=== PATIENT | female | born 1960 | race Caucasian/White ===

== ENCOUNTER 2019-08-06 16:32 | Emergency (ER) | payer BC ==
[2019-08-06] MEDS ORDERED: Sodium Chloride 0.9% 10 ML Syringe FLUSH PRN (16:50)
--- NOTE | 2019-08-06 16:50 | EDM.PDOC ---
ED HPI GENERAL MEDICAL PROBLEM - General Chief Complaint: Upper Extremity Injury/Pain Stated Complaint: LT ELBOW INJURY Time Seen by Provider: 08/06/19 16:34 Source of Information: Reports: Patient, Family (son) History Limitations: Reports: No Limitations - History of Present Illness INITIAL COMMENTS - FREE TEXT/NARRATIVE: 59-year-old female presents to the ED for evaluation of acute injury to her left elbow. She reports that she was out in the past year and a horse backed up into her knocking her to the ground. She fell heavily on her left elbow and had immediate pain and deformity and very limited ability to move her elbow. She may have hit her head but she denies any loss of consciousness. She states her eyeglasses did fly off but she was able to find them. She states she believes the wind was knocked out of her for short period of time. At present she has no problems breathing or pain on deep inspiration. She drove herself to the hospital. She has no problems walking. She has some mild left shoulder tip pain around the acromium process and distal clavicle. Pain is at the elbow with lots of numbness and tingling in the distribution of all of her fingers. Onset: Today Onset Date: 08/06/19 Onset Time: 15:25 Duration: Minutes: Location: Reports: Upper Extremity, Left Quality: Reports: Ache (Elbow.), Throbbing Severity: Moderate (710) Improves with: Denies: None, Cold Therapy, Eating, Heat Therapy, Immobilization Worsens with: Reports: Movement (Attempt to move the left elbow causes tremendous pain.) Context: Reports: Trauma (He was knocked down backwards by a horse who backed into her in the past year.). Denies: Activity, Exercise, Lifting, Sick Contact Associated Symptoms: Reports: No Other Symptoms Treatments [employer]: Reports: Other (see below) Left Elbow Pain Score (Numeric/FACES): 8 - Related Data Allergies Allergy/AdvReac Type Severity Reaction Status Date / Time cyclobenzaprine Allergy Severe Jaundice Verified 08/06/19 16:44 tramadol [From Ultram] Allergy Severe Cannot Verified 08/06/19 16:44 Remember Home Meds: Home Meds Hydrocodone/Acetaminophen [Hydrocodon-Acetaminoph 7.5-325] 1 each PO BEDTIME PRN 08/06/19 [History] Meloxicam 7.5 mg PO DAILY 08/06/19 [History] Pregabalin [Lyrica] 75 mg PO BID 08/06/19 [History] Rosuvastatin Calcium 10 mg PO BEDTIME 08/06/19 [History] Verapamil [Calan] 100 mg PO BEDTIME 08/06/19 [History] Zolpidem [Ambien] 12.5 mg PO BEDTIME 08/06/19 [History] tiZANidine [Zanaflex] 4 mg PO DAILY 08/06/19 [History] Past Medical History Cardiovascular History: Reports: Hypertension Musculoskeletal History: Reports: Back Pain, Chronic Psychiatric History: Reports: Other (See Below) (Chronic insomnia) - Past Surgical History Female Surgical History: Reports: Tubal Ligation Social & Family History - Tobacco Use Smoking Status *Q: Never Smoker - Recreational Drug Use Recreational Drug Use: No - Living Situation & Occupation Living situation: Reports: Occupation: Employed Review of Systems - Review of Systems Review Of Systems: See Below Constitutional: Reports: No Symptoms Eyes: Reports: Glasses Ears: Reports: No Symptoms Nose: Reports: No Symptoms Mouth/Throat: Reports: No Symptoms Respiratory: Reports: No Symptoms Cardiovascular: Reports: No Symptoms GI/Abdominal: Reports: No Symptoms Genitourinary: Reports: No Symptoms Musculoskeletal: Reports: Back Pain (Has scoliosis of the thoracic lumbar spine. ) Skin: Reports: No Symptoms Neurological: Reports: No Symptoms Psychiatric: Reports: No Symptoms ED EXAM, GENERAL - Physical Exam Exam: See Below Exam Limited By: No Limitations General Appearance: Alert, WD/WN, Moderate Distress, Other (Good deal of pain. Temperature is 37.1. Pulse is 90 and sinus respiratory to 16 with O2 sats of 100% on room air. BP is elevated 1 6391.) Eye Exam: Bilateral Eye: Normal Inspection, PERRL Throat/Mouth: Normal Inspection, Normal Lips, Normal Oropharynx, Other (No dental or tongue injury) Head: Atraumatic, Normocephalic Neck: Normal Inspection, Supple, Non-Tender, Full Range of Motion. No: Lymphadenopathy (L), Lymphadenopathy (R) Respiratory/Chest: No Respiratory Distress, Lungs Clear, Normal Breath Sounds, No Accessory Muscle Use Cardiovascular: Normal Peripheral Pulses, Regular Rate, Rhythm, No Edema, No Gallop, No Murmur, No Rub Peripheral Pulses: 3+: Carotid (L), Carotid (R), Posterior Tibial (L), Posterior Tibial (R), Dorsalis Pedis (L), Dorsalis Pedis (R) GI/Abdominal: Normal Bowel Sounds, Soft, Non-Tender, No Organomegaly, No Mass, Pelvis Stable Back Exam: Other (Severe scoliosis of the thoracic spine concave to the right with compensatory curve lumbar spine to the left. Has marked tenderness right around the thoracolumbar junction on exam. She states is chronically sore.) Extremities: Other (Right upper extremity is uninjured with full range of motion and able to put her hand on top of her head. The left upper extremity shows good ulnar and radial pulses. Good opposition of the thumb to all fingers. Still adequate sensation in the distribution of the radial nerve. She has deformity at the elbow with widening and no ability to flex or extend at the elbow. No pain over the olecranon process. Some mild tenderness of the acromioclavicular joint left shoulder. No obvious deformity of the proximal or mid humerus) Neurological: Alert, Oriented, CN II-XII Intact, Normal Cognition Psychiatric: Normal Affect, Normal Mood Skin Exam: Warm, Dry, Intact, Normal Color, No Rash ED TRAUMA EXTREMITY PROCEDURES - Splinting Left Upper Extremity Pre-Procedure NV Status: Normal (Upper extremity above elbow) Post-Procedure NV Status: Normal Splint Material: Fiberglass Splint Design: Extensor, Posterior Applied & Form Fitted By: Provider Provider Post-Splint Application NV Check: NV Status Normal Complications: No EKG INTERPRETATION EKG Date: 08/06/19 Time: 16:55 Rhythm: NSR Rate (Beats/Min): 78 (Occasional PACs) Alpine: Normal P-Wave: Enlarged (Consider left atrial hypertrophy.) QRS: Normal ST-T: Other (Nonspecific T wave flattening aVL) QT: Normal EKG Interpretation Comments: Borderline ECG Course - Vital Signs Last Recorded V/S: Last Vital Signs Temp 37.1 C 08/06/19 16:38 Pulse 65 08/06/19 18:31 Resp 16 08/06/19 16:38 BP 163/91 H 08/06/19 16:38 Pulse Ox 100 08/06/19 18:31 - Orders/Labs/Meds Orders: Active Orders 24 hr Category Date Time Status EKG Documentation Completion [RC] STAT Care 08/06/19 16:48 Active Peripheral IV Care [RC] . DIRECTED Care 08/06/19 16:51 Active URINALYSIS W/MICROSCOPIC [UA W/MICROSCOPIC] [URIN] Stat Lab 08/06/19 16:50 Ordered DME for Discharge [COMM] Stat Oth 08/06/19 18:16 Ordered Durable Medical Equipment for Discharge [DME for Oth 08/06/19 18:15 Ordered Discharge] [COMM] Stat Peripheral IV Insertion Adult [OM.PC] Stat Oth 08/06/19 16:50 Ordered Labs: Laboratory Tests 08/06/19 08/06/19 08/06/19 Range/Units 16:55 16:55 16:55 WBC 8.66 (3.98-10.04) K/mm3 RBC 4.48 (3.98-5.22) M/mm3 Hgb 13.6 (11.2-15.7) gm/dl Hct 41.1 (34.1-44.9) % MCV 91.7 (79.4-94.8) fl MCH 30.4 (25.6-32.2) pg MCHC 33.1 (32.2-35.5) g/dl RDW Std Deviation 40.7 (36.4-46.3) fL Plt Count 324 (182-369) K/mm3 MPV 9.3 L (9.4-12.3) fl Neut % (Auto) 64.3 (34.0-71.1) % Lymph % (Auto) 25.2 (19.3-51.7) % [place] % (Auto) 5.7 (4.7-12.5) % Eos % (Auto) 4.2 (0.7-5.8) Baso % (Auto) 0.5 (0.1-1.2) % Neut # (Auto) 5.58 (1.56-6.13) K/mm3 Lymph # (Auto) 2.18 (1.18-3.74) K/mm3 [place] # (Auto) 0.49 H (0.24-0.36) K/mm3 Eos # (Auto) 0.36 (0.04-0.36) K/mm3 Baso # (Auto) 0.04 (0.01-0.08) K/mm3 PT 10.2 (9.7-12.0) SECONDS INR 0.93 APTT 22 (22-31) SECONDS Sodium 142 (136-145) mEq/L Potassium 3.3 L (3.5-5.1) mEq/L Chloride 103 (98-107) mEq/L Carbon Dioxide 27 (21-32) mEq/L Anion Gap 15.3 H (5-15) BUN 14 (7-18) mg/dL Creatinine 0.8 (0.55-1.02) mg/dL Est Cr Clr Drug Dosing 64.26 mL/min Estimated GFR (MDRD) > 60 (>60) mL/min BUN/Creatinine Ratio 17.5 (14-18) Glucose 111 H (74-106) mg/dL Calcium 9.6 (8.5-10.1) mg/dL Magnesium 2.0 (1.8-2.4) mg/dl Total Bilirubin 0.7 (0.2-1.0) mg/dL AST 20 (15-37) U/L ALT 32 (14-59) U/L Alkaline Phosphatase 87 (46-116) U/L Total Protein 8.3 H (6.4-8.2) g/dl Albumin 4.8 (3.4-5.0) g/dl Globulin 3.5 gm/dL Albumin/Globulin Ratio 1.4 (1-2) SARS Virus RNA (PCR) (NEGATIVE) 08/06/19 Range/Units 17:20 WBC (3.98-10.04) K/mm3 RBC (3.98-5.22) M/mm3 Hgb (11.2-15.7) gm/dl Hct (34.1-44.9) % MCV (79.4-94.8) fl MCH (25.6-32.2) pg MCHC (32.2-35.5) g/dl RDW Std Deviation (36.4-46.3) fL Plt Count (182-369) K/mm3 MPV (9.4-12.3) fl Neut % (Auto) (34.0-71.1) % Lymph % (Auto) (19.3-51.7) % [place] % (Auto) (4.7-12.5) % Eos % (Auto) (0.7-5.8) Baso % (Auto) (0.1-1.2) % Neut # (Auto) (1.56-6.13) K/mm3 Lymph # (Auto) (1.18-3.74) K/mm3 [place] # (Auto) (0.24-0.36) K/mm3 Eos # (Auto) (0.04-0.36) K/mm3 Baso # (Auto) (0.01-0.08) K/mm3 PT (9.7-12.0) SECONDS INR APTT (22-31) SECONDS Sodium (136-145) mEq/L Potassium (3.5-5.1) mEq/L Chloride (98-107) mEq/L Carbon Dioxide (21-32) mEq/L Anion Gap (5-15) BUN (7-18) mg/dL Creatinine (0.55-1.02) mg/dL Est Cr Clr Drug Dosing mL/min Estimated GFR (MDRD) (>60) mL/min BUN/Creatinine Ratio (14-18) Glucose (74-106) mg/dL Calcium (8.5-10.1) mg/dL Magnesium (1.8-2.4) mg/dl Total Bilirubin (0.2-1.0) mg/dL AST (15-37) U/L ALT (14-59) U/L Alkaline Phosphatase (46-116) U/L Total Protein (6.4-8.2) g/dl Albumin (3.4-5.0) g/dl Globulin gm/dL Albumin/Globulin Ratio (1-2) SARS Virus RNA (PCR) Negative (NEGATIVE) Meds: Medications Discontinued Medications Generic Name Dose Route Start Last Admin Trade Name Freq PRN Reason Stop Dose Admin Hydromorphone HCl 0.5 mg 08/06/19 17:02 08/06/19 17:06 Dilaudid IVPUSH 08/06/19 17:03 0.5 mg ONETIME ONE Administration Ondansetron HCl 4 mg 08/06/19 17:03 08/06/19 17:06 Zofran IVPUSH 08/06/19 17:04 4 mg ONETIME ONE Administration Sodium Chloride 10 ml 08/06/19 16:50 08/06/19 17:00 Saline Flush FLUSH 10 ml ASDIRECTED PRN Administration Keep Vein Open - Radiology Interpretation Free Text/Narrative:: 59-year-old female attends the ED after being knocked over by a horse causing her to fall backwards with direct blow to her left elbow. She states she probably did hit the back of her head but not hard enough to knock her out. Her glasses went flying but she was able to find them. She denies any cervical neck pain and has full on opposed range of motion of her cervical spine and no outward signs of head trauma. She denies any pain in her ribs or abdomen. Only pain is in her left elbow which is widened and deformed. She has good radial and ulnar pulses. Lower extremities are uninjured. It appears that she will likely have a supracondylar fracture of the humerus. Plan routine lab work preoperatively to be done. ECG as well. Saline lock placed. Patient offered analgesia on more than 1 occasion of which she has refused. X-Rays left humerus and forearm to be done. - Re-Assessments/Exams Free Text/Narrative Re-Assessment/Exam: 08/06/19 17:49 x-rays of the left humerus do not reveal any obvious fractures. Mild narrowing of the acromioclavicular joint compared with mild osteoarthritic change. X-rays of the left elbow reveals that there is an elevated anterior fat pad suggesting there is significant blood within the true elbow joint. There is a small avulsion fracture /calcification off the lateral aspect of the humerus -concern for ligamentous injury. No definitive fracture identified within the proximal ulna or radial head. Plan will be to place her in a posterior Ortho-Glass splint at 90 degrees flexion and follow-up x-rays to be done in 10 to 14 days time. Has hydrocodone tablets at home that she takes at bedtime primarily for her back pain. She will use these as needed for pain relief. 08/06/19 18:11 patient was placed in a posterior Ortho-Glass splint above the elbow to restrict pronation supination at the elbow. She will be placed in a sling. Departure - Departure Time of Disposition: 18:17 Disposition: Home, Self-Care 01 Condition: Fair Clinical Impression: Avulsion fracture of lateral epicondyle of humerus Qualifiers: Encounter type: initial encounter Fracture type: closed Fracture alignment: displaced Laterality: left Qualified Code(s): S42.432A - Displaced fracture ( avulsion) of lateral epicondyle of left humerus, initial encounter for closed fracture - Discharge Information *PRESCRIPTION DRUG MONITORING PROGRAM REVIEWED*: Not Applicable *COPY OF PRESCRIPTION DRUG MONITORING REPORT IN PATIENT VITA: Not Applicable Instructions: Cast or Splint Care, Adult, [id number] Referrals: Svetlana Novak NP [Primary Care Provider] - Forms: ED Department Discharge Additional Instructions: Evaluation in the emergency room today in regards to injury to the left elbow as a result of a direct fall onto the elbow. The elbow was widened on examination worrisome for a fracture. No other injuries were identified on exam. Trays of the elbow however show that there is a small avulsion fracture off the lateral aspect of the humerus or lateral epicondyles. There is some blood within the joint with distention of the anterior fat pad which sometimes means there is a hairline crack in the distal humerus that cannot be visualized initially. Follow-up x-rays will be required in 10 to 14 days time. In the meantime treatment is immobilization with a Ortho-Glass posterior splint to maintain the arm in 90 degrees flexion until further x-rays and orthopedic consultation are obtained. Sling to be worn most of the time. May i apply ice to the elbow area for 1/2-hour out of every 4 hours today and tomorrow to help reduce swelling and pain. You may use your pain medication from home as needed for pain relief. Aloe up decision will will be made with your son Dr. Roman Bustamante--orthopedic surgeon here in [place]. Sepsis Event Note - Evaluation Sepsis Screening Result: No Definite Risk - Focused Exam Vital Signs: Vital Signs Temp Pulse Resp BP Pulse Ox 08/06/19 18:31 65 100 08/06/19 16:38 37.1 C 90 16 163/91 H 100 Date Exam was Performed: 08/06/19 Time Exam was Performed: 19:12 - My Orders Last 24 Hours: My Active Orders 08/06/19 16:48 EKG Documentation Completion [RC] STAT 08/06/19 16:50 URINALYSIS W/MICROSCOPIC [UA W/MICROSCOPIC] [URIN] Stat Peripheral IV Insertion Adult [OM.PC] Stat 08/06/19 16:51 Peripheral IV Care [RC] . DIRECTED 08/06/19 18:15 Durable Medical Equipment for Discharge [DME for Discharge] [COMM] Stat 08/06/19 18:16 DME for Discharge [COMM] Stat - Assessment/Plan Last 24 Hours: My Active Orders 08/06/19 16:48 EKG Documentation Completion [RC] STAT 08/06/19 16:50 URINALYSIS W/MICROSCOPIC [UA W/MICROSCOPIC] [URIN] Stat Peripheral IV Insertion Adult [OM.PC] Stat 08/06/19 16:51 Peripheral IV Care [RC] . DIRECTED 08/06/19 18:15 Durable Medical Equipment for Discharge [DME for Discharge] [COMM] Stat 08/06/19 18:16 DME for Discharge [COMM] Stat
[2019-08-06] MEDS ORDERED: HYDROmorphone 0.5 MG/0.5 ML Syringe IVPUSH ONE (17:02)
[2019-08-06] MEDS ORDERED: Ondansetron 4 MG/2 ML SDV IVPUSH ONE (17:03)
--- NOTE | 2019-08-06 18:04 | CR ---
Left elbow: 4 views left elbow were obtained. Comparison: No previous elbow study is available. Equivocal joint effusion is noted. Small calcification is seen within the medial soft tissues which appears to be old. No acute fracture, dislocation or other bony abnormality is seen. Soft tissue swelling is noted medially. Impression: 1. Equivocal joint effusion. 2. Small soft tissue calcification believed to be old. 3. Soft tissue swelling is seen medially. No acute bony abnormality is seen. Diagnostic code #2 This report was dictated in MDT
--- NOTE | 2019-08-06 18:04 | CR ---
Left humerus: 2 views left humerus were obtained. Elbow findings as noted on elbow study. Mild joint space narrowing is seen within the acromioclavicular joint. No acute fracture, dislocation or other bony abnormality is appreciated. Impression: 1. Nothing acute is seen on left humerus exam. Diagnostic code #2 This report was dictated in MDT
== END 2019-08-06 18:33 | disposition home or self-care (01) ==
LOC: JD.ED 16:32
DX: S42.432A Displaced fracture (avulsion) of lateral epicondyle of left humerus, initial encounter for closed fracture (principal); M41.85 Other forms of scoliosis, thoracolumbar region; I10 Essential (primary) hypertension; Z88.6 Allergy status to analgesic agent; Z79.899 Other long term (current) drug therapy; Z20.828 Contact with and (suspected) exposure to other viral communicable diseases; W19.XXXA Unspecified fall, initial encounter
CPT/HCPCS: 29105; 36415; 73060; 73080; 80053; 83735; 85025; 85610; 85730; 87635; 93005; 96374; 96375; 99284; J1170; J2405; 93010; U0002

== ENCOUNTER 2020-04-02 11:40 | Day surgery (SDC) | payer BC ==
[2020-04-02] MEDS ORDERED: Metoclopramide 10 MG/2 ML SDV IVPUSH ONE (12:17)
[2020-04-02] MEDS ORDERED: HYDROmorphone 0.5 MG/0.5 ML Syringe IVPUSH ONE ×2 (12:17→14:27)
--- NOTE | 2020-04-02 12:23 | EDM.PDOC ---
ED HPI GENERAL MEDICAL PROBLEM - General Chief Complaint: Abdominal Pain Stated Complaint: R SIDE PAIN Time Seen by Provider: 04/02/20 12:16 Source of Information: Reports: Patient History Limitations: Reports: No Limitations - History of Present Illness INITIAL COMMENTS - FREE TEXT/NARRATIVE: 60-year-old female attends the ED due to severe right lower quadrant abdominal pain that started abruptly last evening or early this morning. Patient had acute onset of severe right lower quadrant abdominal pain followed by nausea vomiting. She cannot comment that there was any blood in her emesis. No associated fever . Associated chills and diaphoresis due to the severity of the pain last evening. She reports she could not walk fully erect last evening somewhat better today. Loss of appetite and did not eat anything today. Every bump in the road hurt on the way to the hospital from [place]. Patient reports that she has been having right lower quadrant abdominal pain for the better part of a month which is somewhat confusing. No history of renal colic. She did eat some fatty chicken last evening for supper. Onset: Sudden, Unknown/Unsure (Is not exactly sure when her pain came on but it was after she had gone to bed and she believes it was around midnight.) Onset Date: 04/02/20 Duration: Hour(s):, Getting Worse (Right lower quadrant abdominal pain gradually worsening over the last 12 hours.) Location: Reports: Abdomen (Right lower quadrant abdominal pain with no radiation into her back.) Quality: Reports: Ache (Pain is described as a constant deep aching pain. Is made worse by coughing sneezing laughing or walking.), Other Severity: Moderate (Nausea and vomiting currently pain is 6 out of 10.) Improves with: Reports: Rest Worsens with: Reports: Other (Pain is worse with coughing, sneezing, laughing, riding in the motor vehicle), Movement Context: Denies: Activity, Exercise, Lifting, Sick Contact Associated Symptoms: Reports: Loss of Appetite, Nausea/Vomiting, Weakness (She estimates she vomited about 6 times during the night.). Denies: Confusion, Chest Pain, Cough, cough w sputum Treatments SENIOR MEDICAL DIRECTOR: Reports: Other (see below) (None. Patient has not eaten since suppertime last night.) Right Abdominal Pain Score (Numeric/FACES): 8 - Related Data Allergies Allergy/AdvReac Type Severity Reaction Status Date / Time tramadol [From Ultram] Allergy Unknown Cannot Verified 04/02/20 14:22 Remember cyclobenzaprine AdvReac Intermediate Jaundice Verified 04/02/20 14:22 Home Meds: Home Meds Hydrocodone/Acetaminophen [Hydrocodon-Acetaminoph 7.5-325] 1 each PO BEDTIME PRN 08/06/19 [History] Meloxicam 7.5 mg PO DAILY 08/06/19 [History] Pregabalin [Lyrica] 75 mg PO DAILY 08/06/19 [History] Rosuvastatin Calcium 10 mg PO BEDTIME 08/06/19 [History] Verapamil [Calan] 100 mg PO BEDTIME 08/06/19 [History] Zolpidem [Ambien] 12.5 mg PO BEDTIME 08/06/19 [History] tiZANidine [Zanaflex] 4 mg PO DAILY 08/06/19 [History] Past Medical History HEENT History: Reports: Cataract, Impaired Vision Cardiovascular History: Reports: High Cholesterol, Hypertension Respiratory History: Reports: None Gastrointestinal History: Reports: GERD Genitourinary History: Reports: None CHANNELER INSOLE History: Reports: Musculoskeletal History: Reports: Back Pain, Chronic Neurological History: Reports: Concussion Psychiatric History: Reports: None Endocrine/Metabolic History: Reports: None Hematologic History: Reports: None Immunologic History: Reports: None Oncologic (Cancer) History: Reports: None Dermatologic History: Reports: None - Infectious Disease History Infectious Disease History: Reports: Chicken Pox, Shingles - Past Surgical History Head Surgeries/Procedures: Reports: None HEENT Surgical History: Reports: Oral Surgery GI Surgical History: Reports: None Female Surgical History: Reports: Tubal Ligation Social & Family History - Family History Cardiac: Reports: [place] Respiratory: Reports: Sleep Apnea - Tobacco Use Tobacco Use Status *Q: Never Tobacco User - Caffeine Use Caffeine Use: Reports: Coffee - Recreational Drug Use Recreational Drug Use: No - Living Situation & Occupation Living situation: Reports: Occupation: Employed ED ROS GENERAL - Review of Systems Review Of Systems: See Below Constitutional: Reports: Chills (When pain came on early this morning.), Fati andie, Decreased Appetite (Has no appetite to eat anything.). Denies: Fever HEENT: Reports: Glasses Respiratory: Reports: Shortness of Breath (Ejective dyspnea is taking a deep breath) Cardiovascular: Denies: Chest Pain, Blood Pressure Problem, Claudication, Dyspnea on Exertion, Edema, Lightheadedness, Orthopnea, Palpitations Endocrine: Reports: No Symptoms GI/Abdominal: Reports: Abdominal Pain, Decreased Appetite (History of present illness.), Nausea, Vomiting. Denies: Distension, Flatus, Hematemesis, Hematochezia : Reports: No Symptoms Musculoskeletal: Reports: No Symptoms Skin: Reports: No Symptoms Neurological: Reports: No Symptoms Psychiatric: Reports: No Symptoms Hematologic/Lymphatic: Reports: No Symptoms Immunologic: Reports: No Symptoms ED EXAM, GI/ABD - Physical Exam Exam: See Below Exam Limited By: No Limitations General Appearance: Alert, WD/WN, No Apparent Distress, Other (Temperature is 36.3 although she feels a little warm to palpation. Heart rate was 97 and sinus respiratory is 18 with O2 sats of 97% room air BP 118/70.) Eyes: Bilateral: Normal Appearance (No scleral icterus or blepharal pallor.) Throat/Mouth: Normal Teeth, Normal Oropharynx, Other (Tongue is mildly dry.) Head: Atraumatic, Normocephalic Neck: Normal Inspection, Supple, Non-Tender, Full Range of Motion. No: Carotid Bruit, Lymphadenopathy (L), Lymphadenopathy (R) Respiratory/Chest: No Respiratory Distress, Lungs Clear, Normal Breath Sounds, No Accessory Muscle Use, Splinting (Splinting on the right side as it makes the abdominal pain worse to take a full deep breath.) Cardiovascular: Normal Peripheral Pulses, Regular Rate, Rhythm, No Edema, No Gallop, No Murmur, No Rub GI/Abdominal Exam: Distended (Very minimally distended and tympanic to percussion left lower quadrant epigastrium and periumbilical.), Guarding, Rebound, Tender (Has severe tenderness even to light percussion well localized to the right lower quadrant over McBurney's point. Examination reveals guarding and severe rebound tenderness indicative of peritonitis. Positive Rovsing sign.), Abnormal Bowel Sounds (Bowel sounds are a little less frequent than normal.) Back Exam: Normal Inspection, Full Range of Motion. No: CVA Tenderness (L), CVA Tenderness (R) Extremities: Normal Inspection, Normal Range of Motion, Non-Tender, No Pedal Edema Neurological: Alert, Oriented, CN II-XII Intact, Normal Cognition Psychiatric: Normal Affect, Normal Mood Skin Exam: Warm, Dry, Intact, Normal Color, No Rash #1 Interpretation EKG Date: 04/02/20 Time: 12:39 Rhythm: NSR Rate (Beats/Min): 80 [place]: Normal P-Wave: Present QRS: Other (Initial poor R wave progression likely due to lead placement.) ST-T: Other (T wave flattening in 1 and aVL nonspecific finding) QT: Prolonged EKG Interpretation Comments: Borderline ECG. Course - Vital Signs Last Recorded V/S: Last Vital Signs Temp 36.3 C 04/02/20 11:54 Pulse 84 04/02/20 13:43 Resp 16 04/02/20 13:43 BP 118/70 04/02/20 11:54 Pulse Ox 100 04/02/20 13:43 - Orders/Labs/Meds Orders: Active Orders 24 hr Category Date Time Status Patient Status [ADT] Routine ADT 04/02/20 14:23 Active EKG Documentation Completion [RC] STAT Care 04/02/20 12:31 Active Abdomen Pelvis w Cont [CT] Stat Exams 04/02/20 12:23 Taken Chest 1V Frontal [CR] Stat Exams 04/02/20 12:22 Taken Dextrose 5%-0.9% NaCl [Dextrose 5%-Normal Saline] 1,000 Med 04/02/20 12:30 Active ml IV ASDIRECTED Scopolamine [Transderm-Scop] Med 04/02/20 13:59 Active 1.5 mg TOP ONETIME PRN Sodium Chloride 0.9% [Saline Flush] Med 04/02/20 14:02 Active 10 ml FLUSH ONETIME PRN Schedule Procedure [COMM] Stat Oth 04/02/20 14:23 Ordered Medication Orders Dextrose/Sodium Chloride (Dextrose 5%-Normal Saline) 1,000 mls @ 500 mls/hr IV ASDIRECTED ZULEYMA Last Admin: 04/02/20 12:29 Dose: 500 mls/hr Documented by: TRINITY Scopolamine (Transderm-Scop) 1.5 mg TOP ONETIME PRN PRN Reason: PONV Sodium Chloride (Saline Flush) 10 ml FLUSH ONETIME PRN PRN Reason: IV FLUSH Last Admin: 04/02/20 14:31 Dose: 10 ml Documented by: SCHNJEF Labs: Laboratory Tests 04/02/20 04/02/20 04/02/20 Range/Units 12:10 12:10 12:10 WBC 15.89 H (3.98-10.04) K/mm3 RBC 4.70 (3.98-5.22) M/mm3 Hgb 14.1 (11.2-15.7) gm/dl Hct 43.4 (34.1-44.9) % MCV 92.3 (79.4-94.8) fl MCH 30.0 (25.6-32.2) pg MCHC 32.5 (32.2-35.5) g/dl RDW Std Deviation 42.1 (36.4-46.3) fL Plt Count 302 (182-369) K/mm3 MPV 9.3 L (9.4-12.3) fl Neutrophils % (Manual) 90 H (40-60) % Band Neutrophils % 1 (0-10) % Lymphocytes % (Manual) 8 L (20-40) % Atypical Lymphs % 0 % Monocytes % (Manual) 1 L (2-10) % Eosinophils % (Manual) 0 L (0.7-5.8) % Basophils % (Manual) 0 L (0.1-1.2) Platelet Estimate Adequate Plt Morphology Comment Normal RBC Morph Comment Normal PT 10.6 (9.7-12.0) SECONDS INR 0.99 APTT 22.8 (21.7-31.4) SECONDS Sodium 139 (136-145) mEq/L Potassium 4.2 (3.5-5.1) mEq/L Chloride 100 (98-107) mEq/L Carbon Dioxide 26 (21-32) mEq/L Anion Gap 17.2 H (5-15) BUN 15 (7-18) mg/dL Creatinine 0.9 (0.55-1.02) mg/dL Est Cr Clr Drug Dosing 56.68 mL/min Estimated GFR (MDRD) > 60 (>60) mL/min BUN/Creatinine Ratio 16.7 (14-18) Glucose 128 H (80-115) mg/dL Calcium 9.7 (8.5-10.1) mg/dL Magnesium 2.1 (1.8-2.4) mg/dl Total Bilirubin 1.7 H (0.2-1.0) mg/dL AST 24 (15-37) U/L ALT 28 (14-59) U/L Alkaline Phosphatase 83 (46-116) U/L C-Reactive Protein 3.7 H* (<1.0) mg/dL Total Protein 8.1 (6.4-8.2) g/dl Albumin 4.5 (3.4-5.0) g/dl Globulin 3.6 gm/dL Albumin/Globulin Ratio 1.3 (1-2) Lipase 53 L (73-393) U/L Urine Color (Yellow) Urine Appearance (Clear) Urine pH (5.0-8.0) Ur Specific [place] (1.005-1.030) Urine Protein (Negative) Urine Glucose (UA) (Negative) Urine Ketones (Negative) Urine Occult Blood (Negative) Urine Nitrite (Negative) Urine Bilirubin (Negative) Urine Urobilinogen (0.2-1.0) Ur Leukocyte Esterase (Negative) Urine RBC (0-5) /hpf Urine WBC (0-5) /hpf Ur Epithelial Cells (0-5) /hpf Urine Bacteria (FEW) /hpf Urine Mucus (FEW) /hpf SARS-CoV-2 RNA (NEIDA) (NEGATIVE) 04/02/20 04/02/20 Range/Units 12:35 14:05 WBC (3.98-10.04) K/mm3 RBC (3.98-5.22) M/mm3 Hgb (11.2-15.7) gm/dl Hct (34.1-44.9) % MCV (79.4-94.8) fl MCH (25.6-32.2) pg MCHC (32.2-35.5) g/dl RDW Std Deviation (36.4-46.3) fL Plt Count (182-369) K/mm3 MPV (9.4-12.3) fl Neutrophils % (Manual) (40-60) % Band Neutrophils % (0-10) % Lymphocytes % (Manual) (20-40) % Atypical Lymphs % % Monocytes % (Manual) (2-10) % Eosinophils % (Manual) (0.7-5.8) % Basophils % (Manual) (0.1-1.2) Platelet Estimate Plt Morphology Comment RBC Morph Comment PT (9.7-12.0) SECONDS INR APTT (21.7-31.4) SECONDS Sodium (136-145) mEq/L Potassium (3.5-5.1) mEq/L Chloride (98-107) mEq/L Carbon Dioxide (21-32) mEq/L Anion Gap (5-15) BUN (7-18) mg/dL Creatinine (0.55-1.02) mg/dL Est Cr Clr Drug Dosing mL/min Estimated GFR (MDRD) (>60) mL/min BUN/Creatinine Ratio (14-18) Glucose (80-115) mg/dL Calcium (8.5-10.1) mg/dL Magnesium (1.8-2.4) mg/dl Total Bilirubin (0.2-1.0) mg/dL AST (15-37) U/L ALT (14-59) U/L Alkaline Phosphatase (46-116) U/L C-Reactive Protein (<1.0) mg/dL Total Protein (6.4-8.2) g/dl Albumin (3.4-5.0) g/dl Globulin gm/dL Albumin/Globulin Ratio (1-2) Lipase (73-393) U/L Urine Color Yellow (Yellow) Urine Appearance Clear (Clear) Urine pH 6.5 (5.0-8.0) Ur Specific [place] 1.020 (1.005-1.030) Urine Protein Negative (Negative) Urine Glucose (UA) Trace H (Negative) Urine Ketones Negative (Negative) Urine Occult Blood Trace-lysed H (Negative) Urine Nitrite Negative (Negative) Urine Bilirubin Negative (Negative) Urine Urobilinogen 0.2 (0.2-1.0) Ur Leukocyte Esterase 1+ H (Negative) Urine RBC 0-5 (0-5) /hpf Urine WBC 0-5 (0-5) /hpf Ur Epithelial Cells 0-5 (0-5) /hpf Urine Bacteria Rare (FEW) /hpf Urine Mucus Few (FEW) /hpf SARS-CoV-2 RNA (NEIDA) Negative (NEGATIVE) Meds: Medications Generic Name Dose Route Start Last Admin Trade Name Freq PRN Reason Stop Dose Admin Dextrose/Sodium Chloride 1,000 mls @ 500 mls/hr 04/02/20 12:30 04/02/20 12:29 Dextrose 5%-Normal Saline IV 500 mls/hr ASDIRECTED ZULEYMA Administration Scopolamine 1.5 mg 04/02/20 13:59 Transderm-Scop TOP ONETIME PRN PONV Sodium Chloride 10 ml 04/02/20 14:02 04/02/20 14:31 Saline Flush FLUSH 10 ml ONETIME PRN Administration IV FLUSH Discontinued Medications Generic Name Dose Route Start Last Admin Trade Name Nina PRN Reason Stop Dose Admin Diatrizoate Meglum/Diatrizoate Sod 120 ml 04/02/20 14:02 04/02/20 14:31 Gastrografin 37% PO 04/02/20 14:03 45 ml ONETIME ONE Administration Fentanyl Confirm 04/02/20 14:31 Sublimaze Administered 04/02/20 14:32 Dose 250 mcg .ROUTE .STK-MED ONE Hydromorphone HCl 0.5 mg 04/02/20 12:17 04/02/20 12:26 Dilaudid IVPUSH 04/02/20 12:18 0.5 mg ONETIME ONE Administration Hydromorphone HCl 0.5 mg 04/02/20 14:27 04/02/20 14:32 Dilaudid IVPUSH 04/02/20 14:28 0.5 mg ONETIME ONE Administration Lidocaine HCl Confirm 04/02/20 14:31 Xylocaine-Mpf 1% Administered 04/02/20 14:32 Dose 4 mls @ as directed .ROUTE .STK-MED ONE Iopamidol 100 ml 04/02/20 14:02 04/02/20 14:30 Isovue-300 (61%) IVPUSH 04/02/20 14:03 100 ml ONETIME ONE Administration Metoclopramide HCl 7.5 mg 04/02/20 12:17 04/02/20 12:24 Reglan IVPUSH 04/02/20 12:18 7.5 mg ONETIME ONE Administration Midazolam HCl Confirm 04/02/20 14:30 Versed 1 Mg/Ml Administered 04/02/20 14:31 Dose 2 mg .ROUTE .STK-MED ONE Ondansetron HCl Confirm 04/02/20 14:31 Zofran Administered 04/02/20 14:32 Dose 8 mg .ROUTE .STK-MED ONE Propofol Confirm 04/02/20 14:30 Diprivan 20 Ml Administered 04/02/20 14:31 Dose 200 mg .ROUTE .STK-MED ONE Rocuronium [place] Confirm 04/02/20 14:30 Zemuron Administered 04/02/20 14:31 Dose 50 mg .ROUTE .[facility] ONE - Radiology Interpretation Free Text/Narrative:: 60-year-old female presents to the ED with acute onset of right lower quadrant abdominal pain. Patient states she developed acute severe right lower quadrant abdominal pain with no radiation to her back probably shortly after midnight. This was associated with development of chills due to the severity of the pain and nausea and vomiting. Patient did not believe she vomited up any blood but really did not be looked. She was diaphoretic for period of time during the night. She could not eat anything this morning. Patient states she has been having right lower quadrant abdominal pain for about a month which has been putting off the doctor for. She otherwise is in good health with no previous abdominal surgery. She reports that every bump in the highway hurt in route to [place] today. Last evening or early this morning she was walking hunched over not quite so bad now. No bowel movement today. No genitourinary complaints. Examination reveals peritonitis localized to the right lower quadrant compatible with acute appendicitis less likely ruptured ovarian cyst due to pain for the last month.? Plan. D5 normal saline at 500 mils per hour. She will have a Covid screen as she appears to need surgery due to acute peritonitis clinically. ECG, chest x-ray routine labs and CRP and lipase to be done. She will be given Dilaudid 0.5 mg IV with Reglan 7.5 mg IV for nausea and pain relief. CT of the abdomen will be done with oral and IV contrast if she can tolerate the oral contrast. - Re-Assessments/Exams Free Text/Narrative Re-Assessment/Exam: 04/02/20 13:29 White count is elevated at 15.89 with 90% neutrophils and 1% bands cells. Crit of 43.4 platelet counts 302,000. Coags are normal with a PT of 10.6 and INR of 0.99. PTT is 22.8. 04/02/20 13:42 Still awaiting the CMP. Coronavirus screen is negative. Patient reports pain is under control with above medication prescribed. She has done very well with oral contrast and is awaiting CT exam. 04/02/20 14:21 Serum sodium is 139 with potassium of 4.2. Chloride 100 with a bicarb of 26. Anion gap is mildly elevated at 17.2. BUN is 15 with a crea tinine of 0.9 and a GFR greater than 60. Glucose is 128. Calcium is 9.7 with a magnesium normal at 2.1. Total bilirubin is mildly elevated at 1.7 AST is normal at 24 ALT normal at 28 alkaline phosphatase normal at 83. 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 C-reactive protein is 3.7. Total protein 8.1 with albumin fraction of 4.5 lipase is normal at 53. Urinalysis shows a trace of glucose and a trace of lysed occult blood. 1+ leukocyte esterase but the micro shows no red cells and no white cells. CT has been held up due to the lab. They were awaiting a creatinine level before proceeding with IV contrast. She apparently is in the CT suite at this time. 04/02/20 14:[address] scan done but has not yet available for me to look at on the monitor. Dr. Erickson did visualize the CT over in the department and identified that she has acute appendicitis. Plan will be for him to take her to the operating room shortly. He will arrange for IV antibiotic therapy preop. Patient was just up to the bathroom and nurse indicated to me that she vomited. This made her pain come back. Will repeat the Dilaudid 0.5 mg IV at this time. 04/02/20 14:34 CT of the abdomen and pelvis has been completed. Visualized portions of the lungs are normal. Cardiac silhouette normal. Liver appears normal with no intraductal dilatation. Gallbladder reveals no calcified gallstones and no thickened wall. Pancreas appears normal. Stomach contains contrast material and it travels into the first part of the duodenum. Spleen is normal. The colon shows diffuse constipation with stool throughout. No dilatation of the small bowel is evident to suggest bowel obstruction. There is significant inflammation periappendiceal area and the appendix is grossly dilated to maximum dilatation of 1.8 cm. No free air outside of the appendix is appreciated. Uterus and ovaries appear to be within normal limits. Bladder appears to be normal. As indicated above patient be going to the operating room shortly for Dr. Erickson to remove her appendix. Departure - Departure Time of Disposition: 14:39 Disposition: DC/Tfer to [facility] Condition: Fair Clinical Impression: Acute peritonitis Acute appendicitis Qualifiers: Acute appendicitis type: with localized peritonitis Appendicitis gangrene presence: unspecified whether gangrene present Appendicitis perforation presence: unspecified whether perforation present Appendicitis abscess presence: without abscess Qualified Code(s): K35.30 - Acute appendicitis with localized peritonitis, without perforation or gangrene - Discharge Information *PRESCRIPTION DRUG MONITORING PROGRAM REVIEWED*: Not Applicable *COPY OF PRESCRIPTION DRUG MONITORING REPORT IN PATIENT VITA: Not Applicable Sepsis Event Note (ED) - Evaluation Sepsis Screening Result: No Definite Risk - Focused Exam Vital Signs: Vital Signs Temp Pulse Resp BP Pulse Ox 04/02/20 13:43 84 16 100 04/02/20 11:54 36.3 C 97 18 118/70 97 - My Orders Last 24 Hours: My Active Orders 04/02/20 12:22 Chest 1V Frontal [CR] Stat 04/02/20 12:23 Abdomen Pelvis w Cont [CT] Stat 04/02/20 12:30 Dextrose 5%-0.9% NaCl [Dextrose 5%-Normal Saline] 1,000 ml IV ASDIRECTED 04/02/20 12:31 EKG Documentation Completion [RC] STAT 04/02/20 14:02 Sodium Chloride 0.9% [Saline Flush] 10 ml FLUSH ONETIME PRN 04/02/20 14:23 Patient Status [ADT] Routine Schedule Procedure [COMM] Stat - Assessment/Plan Last 24 Hours: My Active Orders 04/02/20 12:22 Chest 1V Frontal [CR] Stat 04/02/20 12:23 Abdomen Pelvis w Cont [CT] Stat 04/02/20 12:30 Dextrose 5%-0.9% NaCl [Dextrose 5%-Normal Saline] 1,000 ml IV ASDIRECTED 04/02/20 12:31 EKG Documentation Completion [RC] STAT 04/02/20 14:02 Sodium Chloride 0.9% [Saline Flush] 10 ml FLUSH ONETIME PRN 04/02/20 14:23 Patient Status [ADT] Routine Schedule Procedure [COMM] Stat
[2020-04-02] MEDS ORDERED: Dextrose 5%-0.9% NaCl 1,000 ML IV SCH (12:30)
--- NOTE | 2020-04-02 13:25 | PCM.PREANE ---
Preanesthetic Assessment - Procedure Proposed Procedure: Laparoscopic Appendectomy - Anesthesia/Transfusion/Family Hx Anesthesia History: Prior Anesthesia Without Reaction Family History of Anesthesia Reaction: No Transfusion History: No Prior Transfusion(s) Intubation History: Unknown - Review of Systems General: No Symptoms, Weakness Pulmonary: No Symptoms Cardiovascular: No Symptoms (HTN, elevated cholesterol) Gastrointestinal: No Symptoms (GERD-controlled.), Abdominal Pain (rated 6/10), Decreased Appetite, Nausea, Vomiting Neurological: No Symptoms (Chronic back pain;5-6/10), Headache Other: Reports: None (History of renal colic) - Physical Assessment NPO Status Date: 04/01/20 NPO Status Time: 13:00 Vital Signs: Last Vital Signs Temp 36.3 C 04/02/20 11:54 Pulse 97 04/02/20 11:54 Resp 18 04/02/20 11:54 BP 118/70 04/02/20 11:54 Pulse Ox 97 04/02/20 11:54 Height: 1.63 m Weight: 57.334 kg ASA Class: 2 Mental Status: Alert & Oriented x3 Airway Class: Mallampati = 2 Dentition: Reports: Normal Dentition, Caries Thyro-Mental Finger Breadths: 3 Mouth Opening Finger Breadths: 3 ROM/Head Extension: Full Lungs: Clear to Auscultation, Normal Respiratory Effort Cardiovascular: Regular Rate, Regular Rhythm, No Murmurs - Lab Values: Laboratory Last Values WBC 15.89 K/mm3 (3.98-10.04) H 04/02/20 12:10 RBC 4.70 M/mm3 (3.98-5.22) 04/02/20 12:10 Hgb 14.1 gm/dl (11.2-15.7) 04/02/20 12:10 Hct 43.4 % (34.1-44.9) 04/02/20 12:10 MCV 92.3 fl (79.4-94.8) 04/02/20 12:10 MCH 30.0 pg (25.6-32.2) 04/02/20 12:10 MCHC 32.5 g/dl (32.2-35.5) 04/02/20 12:10 RDW Std Deviation 42.1 fL (36.4-46.3) 04/02/20 12:10 Plt Count 302 K/mm3 (182-369) 04/02/20 12:10 MPV 9.3 fl (9.4-12.3) L 04/02/20 12:10 Neutrophils % (Manual) 90 % (40-60) H 04/02/20 12:10 Band Neutrophils % 1 % (0-10) 04/02/20 12:10 Lymphocytes % (Manual) 8 % (20-40) L 04/02/20 12:10 Atypical Lymphs % 0 % 04/02/20 12:10 Monocytes % (Manual) 1 % (2-10) L 04/02/20 12:10 Eosinophils % (Manual) 0 % (0.7-5.8) L 04/02/20 12:10 Basophils % (Manual) 0 (0.1-1.2) L 04/02/20 12:10 Platelet Estimate Adequate 04/02/20 12:10 Plt Morphology Comment Normal 04/02/20 12:10 RBC Morph Comment Normal 04/02/20 12:10 PT 10.6 SECONDS (9.7-12.0) 04/02/20 12:10 INR 0.99 04/02/20 12:10 APTT 22.8 SECONDS (21.7-31.4) 04/02/20 12:10 Above labs reviewed and noted and within acceptable ranges to proceed with scheduled procedure. - Imaging/EKG Impressions: EKG: NSR rate= 80 CXR: normal - Allergies Allergies/Adverse Reactions: Allergies Allergy/AdvReac Type Severity Reaction Status Date / Time cyclobenzaprine Allergy Severe Jaundice Verified 04/02/20 11:49 tramadol [From Ultram] Allergy Severe Cannot Verified 04/02/20 11:49 Remember - Anesthesia Plan Pre-Op Medication Ordered: None - Acknowledgements Anesthesia Type Planned: General Anesthesia Pt an Appropriate Candidate for the Planned Anesthesia: Yes Alternatives and Risks of Anesthesia Discussed w Pt/Guardian: Yes Pt/Guardian Understands and Agrees with Anesthesia Plan: Yes PreAnesthesia Questionnaire HEENT History: Reports: Cataract, Impaired Vision Cardiovascular History: Reports: High Cholesterol, Hypertension Respiratory History: Reports: None Gastrointestinal History: Reports: GERD Genitourinary History: Reports: None [employer] PROGRAM[employer] History: Reports: Musculoskeletal History: Reports: Back Pain, Chronic Neurological History: Reports: Concussion Psychiatric History: Reports: None Endocrine/Metabolic History: Reports: None Hematologic History: Reports: None Immunologic History: Reports: None Oncologic (Cancer) History: Reports: None Dermatologic History: Reports: None - Infectious Disease History Infectious Disease History: Reports: Chicken Pox, Shingles - Past Surgical History Head Surgeries/Procedures: Reports: None HEENT Surgical History: Reports: Oral Surgery GI Surgical History: Reports: None Female Surgical History: Reports: Tubal Ligation - SUBSTANCE USE Tobacco Use Status *Q: Never Tobacco User Recreational Drug Use History: No - HOME MEDS Home Medications: Home Meds Hydrocodone/Acetaminophen [Hydrocodon-Acetaminoph 7.5-325] 1 each PO BEDTIME PRN 08/06/19 [History] Meloxicam 7.5 mg PO DAILY 08/06/19 [History] Pregabalin [Lyrica] 75 mg PO DAILY 08/06/19 [History] Rosuvastatin Calcium 10 mg PO BEDTIME 08/06/19 [History] Verapamil [Calan] 100 mg PO BEDTIME 08/06/19 [History] Zolpidem [Ambien] 12.5 mg PO BEDTIME 08/06/19 [History] tiZANidine [Zanaflex] 4 mg PO DAILY 08/06/19 [History] - CURRENT (IN HOUSE) MEDS Current Meds: Current Medications Dextrose/Sodium Chloride (Dextrose 5%-Normal Saline) 1,000 mls @ 500 mls/hr IV ASDIRECTED [facility] Last Admin: 04/02/20 12:29 Dose: 500 mls/hr Documented by: Discontinued Medications Hydromorphone HCl (Dilaudid) 0.5 mg IVPUSH ONETIME ONE Stop: 04/02/20 12:18 Last Admin: 04/02/20 12:26 Dose: 0.5 mg Documented by: Metoclopramide HCl (Reglan) 7.5 mg IVPUSH ONETIME ONE Stop: 04/02/20 12:18 Last Admin: 04/02/20 12:24 Dose: 7.5 mg Documented by:
[2020-04-02] MEDS ORDERED: Scopolamine 1.5 MG Transdermal Patch TOP PRN (13:59)
[2020-04-02] MEDS ORDERED: Diatrizoate Meglumine/Diatrizoate Sodium 37% 120 ML Bottle PO ONE (14:02)
[2020-04-02] MEDS ORDERED: Iopamidol 612 MG/ML 100 ML Bottle IVPUSH ONE (14:02)
[2020-04-02] MEDS ORDERED: Sodium Chloride 0.9% 10 ML Syringe FLUSH PRN (14:02)
[2020-04-02] MEDS ORDERED: Propofol 200 MG/20 ML SDV ONE (14:30)
[2020-04-02] MEDS ORDERED: Midazolam 1 MG/ML 2 ML SDV ONE (14:30)
[2020-04-02] MEDS ORDERED: Rocuronium 50 MG/5 ML Vial ONE (14:30)
[2020-04-02] MEDS ORDERED: Ondansetron 4 MG/2 ML SDV ONE (14:31)
[2020-04-02] MEDS ORDERED: fentaNYL 250 MCG/5 ML SDV ONE (14:31)
[2020-04-02] MEDS ORDERED: Lidocaine 1% 4 ML ONE (14:31)
[2020-04-02] MEDS ORDERED: Succinylcholine/Sod PF 100 MG/5 ML SYRINGE IV ONE (14:32)
[2020-04-02] MEDS ORDERED: Bupivacaine 0.5%/EPINEPHrine 1:200,000 50 ML MDV ONE (14:37)
--- NOTE | 2020-04-02 14:56 | CT ---
CT abdomen and pelvis Technique: Multiple axial sections were obtained from above the dome of the diaphragm inferiorly through the pubic symphysis. Intravenous and oral contrast was utilized. Delayed images were also obtained from the bottom of the kidneys inferiorly through the pubic symphysis. Findings: There is an enlarged appendix being seen with prominent inflammatory change compatible with fairly severe appendicitis. Visualized lung bases show nothing acute. Liver shows a small low-density lesion within the upper left lobe which is compatible with a cyst measuring 9 mm. No additional abnormality is seen within the liver. Spleen size is normal. Small hiatal hernia is noted with mild gastroesophageal reflux of contrast. Adrenal glands show no nodule. Pancreas is within normal limits. Gallbladder contains no calcified gallstones. Both kidneys show symmetric contrast enhancement. No hydronephrosis or mass is seen. Delayed images show contrast excretion into both ureters and within the bladder. No pelvic mass or adenopathy is seen. No free fluid is identified. Increased stool is noted throughout the colon. Bone window settings were reviewed which show scoliosis within the spine. Scattered disc space narrowing is noted. No acute osseous finding is appreciated. Impression: 1. Findings compatible with moderately severe appendicitis. No free fluid is identified. 2. Increased stool within the colon. 3. Other findings as noted above which are nonacute. Diagnostic code #5
[2020-04-02] MEDS ORDERED: HYDROmorphone 0.5 MG/0.5 ML Syringe ONE (15:22)
--- NOTE | 2020-04-02 16:02 | CR ---
Chest: Frontal view of the chest was obtained. Comparison: No previous study. Heart size and mediastinum are normal. Lung markings are minimally increased which most likely relate to technique. No acute parenchymal change is seen within either lung. Previous right shoulder surgery is noted. Slight scoliosis is noted within the spine with mild scattered degenerative change. Impression: 1. Findings as noted above. 2. Nothing acute is appreciated. Diagnostic code #2
--- NOTE | 2020-04-02 16:33 | PCM.POSTAN ---
POST ANESTHESIA ASSESSMENT - MENTAL STATUS Mental Status: Somnolent - VITAL SIGNS Vital Signs: postop VSs: 111/69, 86, RR 12, SpO2 99% 4LO2, T 97.9FLast Vital Signs Temp 97.9 F 04/02/20 16:22 Pulse 80 04/02/20 14:50 Resp 13 04/02/20 16:25 BP 109/71 04/02/20 16:22 Pulse Ox 99 04/02/20 16:25 - RESPIRATORY Respiratory Status: Respiratory Rate WNL, Airway Patent, O2 Saturation Stable - CARDIOVASCULAR CV Status: Pulse Rate WNL, Blood Pressure Stable - GASTROINTESTINAL GI Status: No Symptoms - PAIN Pain Score: 0 - POST OP HYDRATION Hydration Status: Adequate & Stable
[2020-04-02] MEDS ORDERED: fentaNYL 100 MCG/2 ML SDV IVPUSH PRN (16:38)
--- NOTE | 2020-04-02 16:42 | PCM.PRNOTE ---
- Free Text/Narrative Note: Date: 04/02/2020 Operation: laparoscopic appendectomy Indication: acute appendicitis Surgeon: Chad Erickson MD EBL: 10 cc Antibiotic: 2 g cefoxitin IV pre-op Findings: acute uncomplicated appendicitis Detailed Report: The patient was taken to the OR and placed supine on the table. Time out was performed and general endotracheal anesthesia initiated. The patient's left arm was tucked at her side and the abdomen was prepped and draped in usual sterile fashion. A Veress needle was placed in the LUQ to establish pneumoperitoneum. Air was aspirated just inferior to the umbilicus, and a bladed 12 mm port was placed at this site. The 5 mm 30 degree laparoscope was inserted into the abdomen. The Veress insertion site looked good and the needle was removed. Additional 5 mm ports were placed, one at the suprapubic area and one in the left lower quadrant. A total of 20 cc 0.5% marcaine with epinephrine was inje cted at incision sites for local anesthetic. The patient was positioned in Trendelenburg and rotated toward the surgeon standing on the patient's left side. The transverse colon was very low-hanging; this was reflected out of the way to expose the cecum. The terminal ileum was identified, and the appendix was seen coming off the base of the cecum. A window was made in the mesoappendix at the base, and two 30 mm white staple loads were fired using the powered stapler, dividing the appendix flush with the base of the cecum. The Ligasure was used to divide the mesoappendix. The specimen was placed in an Endocatch and removed from the abdomen. The dissection field was suctioned dry and covered with omentum. The larger incision was closed at the level of the fascia with two interrupted 0 vicryl sutures using the laparoscopic suture passer. Pneumoperitoneum was released after other ports were removed under laparoscopic visualization. All incisions were closed at the level of skin with 4-0 vicryl and dressed with dermabond. The patient tolerated the procedure well, was extubated in the OR and transferred to PACU for routine post-anesthesia care prior to anticipated discharge to home.
--- NOTE | 2020-04-02 17:19 | PCM48HPAN ---
Post Anesthesia Note - EVALUATION WITHIN 48HRS OF ANESTHETIC Vital Signs in Normal Range: Yes Patient Participated in Evaluation: Yes Respiratory Function Stable: Yes Airway Patent: Yes Cardiovascular Function Stable: Yes Hydration Status Stable: Yes Pain Control Satisfactory: Yes Nausea and Vomiting Control Satisfactory: Yes Mental Status Recovered: Yes Vital Signs: Last Vital Signs Temp 209.7 F H 04/02/20 17:05 Pulse 80 04/02/20 14:50 Resp 14 04/02/20 17:05 BP 115/65 04/02/20 17:05 Pulse Ox 98 04/02/20 17:05 - COMMENTS/OBSERVATIONS Free Text/Narrative:: Stable, preparing for discharge
--- NOTE | 2020-04-02 22:11 | PCM.HP.2 ---
H&P History of Present Illness - General Date of Service: 04/02/20 Admit Problem/Dx: acute appendicitis Source of Information: Patient History Limitations: Reports: No Limitations - History of Present Illness Initial Comments - Free Text/Narative: Patient is a 60-year-old woman who presents with 1 day of right lower quadrant pain. Lab work shows leukocytosis, with CT scan confirming diagnosis of acute appendicitis. Onset of Symptoms: Reports: Today Right Abdominal Pain Score (Numeric/FACES): 8 - Related Data Allergies/Adverse Reactions: Allergies Allergy/AdvReac Type Severity Reaction Status Date / Time tramadol [From Ultram] Allergy Unknown Cannot Verified 04/02/20 14:22 Remember cyclobenzaprine AdvReac Intermediate Jaundice Verified 04/02/20 14:22 Home Medications: Home Meds Hydrocodone/Acetaminophen [Hydrocodon-Acetaminoph 7.5-325] 1 each PO BEDTIME PRN 08/06/19 [History] Meloxicam 7.5 mg PO DAILY 08/06/19 [History] Pregabalin [Lyrica] 75 mg PO DAILY 08/06/19 [History] Rosuvastatin Calcium 10 mg PO BEDTIME 08/06/19 [History] Verapamil [Calan] 100 mg PO BEDTIME 08/06/19 [History] Zolpidem [Ambien] 12.5 mg PO BEDTIME 08/06/19 [History] tiZANidine [Zanaflex] 4 mg PO DAILY 08/06/19 [History] oxyCODONE 5 mg PO Q4H PRN #15 tab 04/02/20 [Rx] Past Medical History HEENT History: Reports: Cataract, Impaired Vision Cardiovascular History: Reports: High Cholesterol, Hypertension Respiratory History: Reports: None Gastrointestinal History: Reports: GERD Genitourinary History: Reports: None [employer]END[employer] History: Reports: Musculoskeletal History: Reports: Back Pain, Chronic Neurological History: Reports: Concussion Psychiatric History: Reports: None Endocrine/Metabolic History: Reports: None Hematologic History: Reports: None Immunologic History: Reports: None Oncologic (Cancer) History: Reports: None Dermatologic History: Reports: None - Infectious Disease History Infectious Disease History: Reports: Chicken Pox, Shingles - Past Surgical History Head Surgeries/Procedures: Reports: None HEENT Surgical History: Reports: Oral Surgery GI Surgical History: Reports: None Female Surgical History: Reports: Tubal Ligation Social & Family History - Family History Cardiac: Reports: NC Respiratory: Reports: Sleep Apnea - Tobacco Use Tobacco Use Status *Q: Never Tobacco User - Caffeine Use Caffeine Use: Reports: Coffee - Recreational Drug Use Recreational Drug Use: No - Living Situation & Occupation Living situation: Reports: Occupation: Employed H&P Review of Systems - Review of Systems: Review Of Systems: See Below General: Reports: Malaise HEENT: Reports: No Symptoms Pulmonary: Reports: No Symptoms Cardiovascular: Reports: No Symptoms Gastrointestinal: Reports: Abdominal Pain Genitourinary: Reports: No Symptoms Musculoskeletal: Reports: No Symptoms Skin: Reports: No Symptoms Psychiatric: Reports: No Symptoms Neurological: Reports: No Symptoms Hematologic/Lymphatic: Reports: No Symptoms Immunologic: Reports: No Symptoms Exam - Exam Exam: See Below - Vital Signs Vital Signs: Last Vital Signs Temp 98.7 C H 04/02/20 17:05 Pulse 80 04/02/20 14:50 Resp 14 04/02/20 17:05 BP 115/65 04/02/20 17:05 Pulse Ox 98 04/02/20 17:05 Weight: 57.334 kg - Exam General: Alert, Oriented, Cooperative HEENT: Conjunctiva Clear Neck: Supple, Trachea Midline Lungs: Clear to Auscultation, Normal Respiratory Effort Cardiovascular: Regular Rate, Regular Rhythm GI/Abdominal Exam: Tender Extremities: Normal Inspection Skin: Warm, Dry Neuro Extensive - Mental Status: Alert, Oriented x3 Psychiatric: Normal Mood - Patient Data Lab Results Last 24 hrs: Laboratory Results - last 24 hr 04/02/20 04/02/20 04/02/20 Range/Units 12:10 12:10 12:10 WBC 15.89 H (3.98-10.04) K/mm3 RBC 4.70 (3.98-5.22) M/mm3 Hgb 14.1 (11.2-15.7) gm/dl Hct 43.4 (34.1-44.9) % MCV 92.3 (79.4-94.8) fl MCH 30.0 (25.6-32.2) pg MCHC 32.5 (32.2-35.5) g/dl RDW Std Deviation 42.1 (36.4-46.3) fL Plt Count 302 (182-369) K/mm3 MPV 9.3 L (9.4-12.3) fl Neutrophils % (Manual) 90 H (40-60) % Band Neutrophils % 1 (0-10) % Lymphocytes % (Manual) 8 L (20-40) % Atypical Lymphs % 0 % Monocytes % (Manual) 1 L (2-10) % Eosinophils % (Manual) 0 L (0.7-5.8) % Basophils % (Manual) 0 L (0.1-1.2) Platelet Estimate Adequate Plt Morphology Comment Normal RBC Morph Comment Normal PT 10.6 (9.7-12.0) SECONDS INR 0.99 APTT 22.8 (21.7-31.4) SECONDS Sodium 139 (136-145) mEq/L Potassium 4.2 (3.5-5.1) mEq/L Chloride 100 (98-107) mEq/L Carbon Dioxide 26 (21-32) mEq/L Anion Gap 17.2 H (5-15) BUN 15 (7-18) mg/dL Creatinine 0.9 (0.55-1.02) mg/dL Est Cr Clr Drug Dosing 56.68 mL/min Estimated GFR (MDRD) > 60 (>60) mL/min BUN/Creatinine Ratio 16.7 (14-18) Glucose 128 H (80-115) mg/dL Calcium 9.7 (8.5-10.1) mg/dL Magnesium 2.1 (1.8-2.4) mg/dl Total Bilirubin 1.7 H (0.2-1.0) mg/dL AST 24 (15-37) U/L ALT 28 (14-59) U/L Alkaline Phosphatase 83 (46-116) U/L C-Reactive Protein 3.7 H* (<1.0) mg/dL Total Protein 8.1 (6.4-8.2) g/dl Albumin 4.5 (3.4-5.0) g/dl Globulin 3.6 gm/dL Albumin/Globulin Ratio 1.3 (1-2) Lipase 53 L (73-393) U/L Urine Color (Yellow) Urine Appearance (Clear) Urine pH (5.0-8.0) Ur Specific Lowes (1.005-1.030) Urine Protein (Negative) Urine Glucose (UA) (Negative) Urine Ketones (Negative) Urine Occult Blood (Negative) Urine Nitrite (Negative) Urine Bilirubin (Negative) Urine Urobilinogen (0.2-1.0) Ur Leukocyte Esterase (Negative) Urine RBC (0-5) /hpf Urine WBC (0-5) /hpf Ur Epithelial Cells (0-5) /hpf Urine Bacteria (FEW) /hpf Urine Mucus (FEW) /hpf SARS-CoV-2 RNA (NEIDA) (NEGATIVE) 04/02/20 04/02/20 Range/Units 12:35 14:05 WBC (3.98-10.04) K/mm3 RBC (3.98-5.22) M/mm3 Hgb (11.2-15.7) gm/dl Hct (34.1-44.9) % MCV (79.4-94.8) fl MCH (25.6-32.2) pg MCHC (32.2-35.5) g/dl RDW Std Deviation (36.4-46.3) fL Plt Count (182-369) K/mm3 MPV (9.4-12.3) fl Neutrophils % (Manual) (40-60) % Band Neutrophils % (0-10) % Lymphocytes % (Manual) (20-40) % Atypical Lymphs % % Monocytes % (Manual) (2-10) % Eosinophils % (Manual) (0.7-5.8) % Basophils % (Manual) (0.1-1.2) Platelet Estimate Plt Morphology Comment RBC Morph Comment PT (9.7-12.0) SECONDS INR APTT (21.7-31.4) SECONDS Sodium (136-145) mEq/L Potassium (3.5-5.1) mEq/L Chloride (98-107) mEq/L Carbon Dioxide (21-32) mEq/L Anion Gap (5-15) BUN (7-18) mg/dL Creatinine (0.55-1.02) mg/dL Est Cr Clr Drug Dosing mL/min Estimated GFR (MDRD) (>60) mL/min BUN/Creatinine Ratio (14-18) Glucose (80-115) mg/dL Calcium (8.5-10.1) mg/dL Magnesium (1.8-2.4) mg/dl Total Bilirubin (0.2-1.0) mg/dL AST (15-37) U/L ALT (14-59) U/L Alkaline Phosphatase (46-116) U/L C-Reactive Protein (<1.0) mg/dL Total Protein (6.4-8.2) g/dl Albumin (3.4-5.0) g/dl Globulin gm/dL Albumin/Globulin Ratio (1-2) Lipase (73-393) U/L Urine Color Yellow (Yellow) Urine Appearance Clear (Clear) Urine pH 6.5 (5.0-8.0) Ur Specific Lowes 1.020 (1.005-1.030) Urine Protein Negative (Negative) Urine Glucose (UA) Trace H (Negative) Urine Ketones Negative (Negative) Urine Occult Blood Trace-lysed H (Negative) Urine Nitrite Negative (Negative) Urine Bilirubin Negative (Negative) Urine Urobilinogen 0.2 (0.2-1.0) Ur Leukocyte Esterase 1+ H (Negative) Urine RBC 0-5 (0-5) /hpf Urine WBC 0-5 (0-5) /hpf Ur Epithelial Cells 0-5 (0-5) /hpf Urine Bacteria Rare (FEW) /hpf Urine Mucus Few (FEW) /hpf SARS-CoV-2 RNA (NEIDA) Negative (NEGATIVE) Result Diagrams: 04/02/20 12:10 04/02/20 12:10 Sepsis Event Note - Evaluation Sepsis Screening Result: No Definite Risk - Focused Exam Vital Signs: Vital Signs Temp Pulse Resp BP Pulse Ox 04/02/20 17:05 98.7 C H 14 115/65 98 04/02/20 16:50 37.0 C 11 L 101/66 98 04/02/20 16:35 36.3 C 12 104/66 100 04/02/20 16:25 13 99 04/02/20 16:22 36.6 C 14 109/71 100 04/02/20 16:05 36.6 C 12 111/69 99 04/02/20 14:50 37.3 C 80 16 129/76 97 04/02/20 14:05 36.4 C 84 16 142/79 H 98 04/02/20 13:43 84 16 100 04/02/20 11:54 36.3 C 97 18 118/70 97 Problem List Initiated/Reviewed/Updated: Yes Orders Last 24hrs: Active Orders 24 hr Category Date Time Status Patient Status [ADT] Routine ADT 04/02/20 14:23 Active Schedule Procedure [COMM] Stat Oth 04/02/20 14:23 Ordered Assessment/Plan Comment:: Acute appendicitis. Plan for laparoscopic appendectomy, and anticipate discharge to home from the recovery unit following her operation. - Mortality Measure Prognosis:: Good
== END 2020-04-02 17:38 | disposition home or self-care (01) ==
LOC: JD.ED 11:40 → JD.SDS 14:23
PROVIDERS: ATTEND Surgery
DX: D12.1 Benign neoplasm of appendix (principal); K35.30 Acute appendicitis with localized peritonitis, without perforation or gangrene; I10 Essential (primary) hypertension; E78.00 Pure hypercholesterolemia, unspecified; G89.29 Other chronic pain; Z01.812 Encounter for preprocedural laboratory examination; Z20.822 Contact with and (suspected) exposure to COVID-19; Z88.8 Allergy status to other drugs, medicaments and biological substances; Z79.899 Other long term (current) drug therapy
CPT/HCPCS: 36415; 44970; 71045; 74177; 80053; 81001; 83690; 83735; 85007; 85027; 85610; 85730; 86140; 87635; 93005; 96374; 96375; 96376; 99285; A9270; J0330; J0694; J1170; J2250; J2370; J2405; J2704; J2710; J2765; J3010; J3490; J7042; Q9963; Q9967; 00840; 93010; J2001; U0002